=== PATIENT | female | born 1935 | race Caucasian/White ===

== ENCOUNTER → 2016-05-05 | Outpatient (CLI) | payer MEDICARE, OTHER ==
[~2016-05-05] MED LIST: ASPIRIN; BLACK COHASH; BOSWELLIA SERRAT1 GM MC; FLAX SEED OIL1000 MG; HCTZ PO; LISINOPRIL; LISINOPRIL PO; METFORMIN; METFORMIN HCL500 M1 PO; MSM; OMEGA 3-6-9 CO400 MG PO; OYSTER CALCIUM500 MG; PLAQUENIL200 MG; ZOCOR PO; [UNRECOGNIZED DRUG - MIXTURE]
--- NOTE | ~2016-05-05 | CT4 ---
[facility] A Service of [facility] RADIOLOGY TEXT RESULTS PATIENT: ATTILA SPENCER LOCATION: [facility] : 39 UNIT #: [id number] AGE: [address]: LELE THOMAS MD (INT MED) SEX: F ORDER DR: [id number] [address] [address] [id number] O MR#: [id number] Acc #: [id number] NAME: ATTILA SPENCER : 1935 SEX: F STUDY DATE/TIME: 05/05/2016 13:58 UNIT: [facility] ROOM: STUDY DESCRIPTION: CT Abd and Pelv Wo Cont Attending Physician: Lele Thomas M.D. Referring Physician: Lele Thomas M.D. Ordering Physician: Lele Thomas M.D. Primary Care Physician: Lele Thomas M.D. MEDICAL IMAGING REPORT This report is preliminary unless electronic signature is present. EXAM CT abdomen and pelvis, 05/05/2016 CLINICAL HISTORY Generalized abdominal pain and epigastric pain for 1 month. Decreased appetite and nausea. TECHNIQUE CT of the abdomen and pelvis without contrast. Coronal and sagittal reconstructions were obtained. This CT exam was performed with one or more of the following radiation dose reduction techniques: automatic exposure control, adjustment of mA and/or kV according to patient size, and iterative reconstruction. COMPARISON None available. FINDINGS ABDOMEN: There is a small 5 mm noncalcified pulmonary nodule in the left lower lobe. This is likely a benign granuloma however, it should be followed. Noncontrast evaluation of the solid abdominal organs are within normal limits. There is a densely calcified gallstone in the gallbladder. No gallbladder distension or pericholecystic inflammation. No urinary calculi. The bowel is not dilated. There is extensive colonic diverticulosis. No diverticulitis. Appendix is normal. The abdominal aorta is normal in caliber. PELVIS: Uterus and ovaries are within normal limits. The bladder is [facility] A Service of [facility] RADIOLOGY TEXT RESULTS PATIENT: ATTILA SPENCER LOCATION: [facility] : 39 UNIT #: [id number] AGE: [address]: LELE THOMAS MD (INT MED) SEX: F ORDER DR: decompressed. No enlarged pelvic or inguinal lymph nodes. IMPRESSION 1. Cholelithiasis. 2. Left-sided colonic diverticulosis. 3. 5 mm noncalcified pulmonary nodule in the left lower lobe. This is probably benign granuloma, however I would recommend precautionary followup. Consider a CT chest in 12 months. Dictated by... Maximo Campbell M.D. THIS IS AN ELECTRONICALLY VERIFIED REPORT Maximo Campbell M.D. at 05/06/2016 12:12 PM SANTA/becky TD: 05/05/2016 22:51 JOB #: [id number] MEDICAL IMAGING REPORT
== END | disposition home or self-care (01) ==
LOC: SCT 13:32
DX: R63.0 Anorexia (principal); R11.0 Nausea; K80.20 Calculus of gallbladder without cholecystitis without obstruction; K57.30 Diverticulosis of large intestine without perforation or abscess without bleeding; R91.1 Solitary pulmonary nodule
CPT/HCPCS: 74176

== ENCOUNTER → 2016-07-06 | Outpatient (CLI) | payer MEDICARE, OTHER ==
--- NOTE | ~2016-07-06 | CT4 ---
[facility] A Service of [facility] RADIOLOGY TEXT RESULTS PATIENT: ATTILA SPENCER LOCATION: [facility] : 39 UNIT #: [id number] AGE: [address]: LELE THOMAS MD (INT MED) SEX: F ORDER DR: [id number] [address] [address] [id number] O MR#: [id number] Acc #: [id number] NAME: ATTILA SPENCER : 1935 SEX: F STUDY DATE/TIME: 07/06/2016 9:31 UNIT: [facility] ROOM: STUDY DESCRIPTION: CT Abd and Pelv Wo Cont Attending Physician: Lele Thomas M.D. Referring Physician: Lele Thomas M.D. Ordering Physician: Lele Thomas M.D. Primary Care Physician: Lele Thomas M.D. MEDICAL IMAGING REPORT This report is preliminary unless electronic signature is present. EXAM CT of the abdomen and pelvis without contrast INDICATIONS Blood in the urine. This has been present since April 10, one and off. The patient also has some urinary frequency. TECHNIQUE Axial CT images were obtained from the dome of the diaphragm through the symphysis pubis. No oral or intravenous contrast material was administered. There is a 5 mm nodule within the left lower lobe, as well as a 1.0-cm nodule within the right lower lobe, both of these appear stable when compared to the May 05, 2016 exam. Liver is unremarkable. The patient has cholelithiasis. Spleen, stomach and proximal and small bowel are within normal limits, as are the adrenal glands and pancreas. No renal stones are identified. There is no hydronephrosis. No solid or cystic renal masses are identified on these unenhanced images. No distal ureteral or bladder stones are seen. No free fluid or adenopathy is seen within the abdomen. There is colonic diverticulosis without evidence of diverticulitis. Uterus is within normal limits. Urinary bladder appears normal. No free fluid or adenopathy is seen within the pelvis. Review of bony windows does not demonstrate any aggressive osseous abnormalities. IMPRESSION 1. No etiology for the patient's hematuria is identified. Kidneys appear unremarkable. No stones are seen. There is no hydronephrosis. No distal ureteral or bladder stones are identified. I do not see any solid or cystic renal masses. Bladder also appears unremarkable. [facility]. [facility] A Service of [facility] RADIOLOGY TEXT RESULTS PATIENT: ATTILA SPENCER LOCATION: [facility] : 39 UNIT #: [id number] AGE: [address]: LELE THOMAS MD (INT MED) SEX: F ORDER DR: 2. Colonic diverticulosis without evidence of diverticulitis. 3. Patient has 2 noncalcified pulmonary nodules seen at the lung bases. These are unchanged when compared to the prior examination. Continuing follow up is recommended however with next followup suggested in 6 months. 3. Cholelithiasis. 4. Please see the body of the report for any other additional incidental findings. 1. 1. Dictated by... Laney Garcia M.D. THIS IS AN ELECTRONICALLY VERIFIED REPORT Laney Garcia M.D. at 07/07/2016 4:45 PM AFF/to TD: 07/06/2016 21:13 JOB #: [id number] MEDICAL IMAGING REPORT Page 1 of 1
== END | disposition home or self-care (01) ==
LOC: SCT 09:32
DX: R31.29 Other microscopic hematuria (principal); R35.0 Frequency of micturition; N39.0 Urinary tract infection, site not specified; K80.20 Calculus of gallbladder without cholecystitis without obstruction; K57.30 Diverticulosis of large intestine without perforation or abscess without bleeding; R91.8 Other nonspecific abnormal finding of lung field
CPT/HCPCS: 74176

== ENCOUNTER → 2016-11-10 | Outpatient (CLI) | payer MEDICARE, OTHER ==
--- NOTE | ~2016-11-10 | US6 ---
[facility] A Service of [facility] RADIOLOGY TEXT RESULTS PATIENT: ATTILA SPENCER LOCATION: [facility] : 39 UNIT #: [id number] AGE: [address]: LELE THOMAS MD (INT MED) SEX: F ORDER DR: [id number] [address] [address] [id number] O MR#: [id number] Acc #: [id number] NAME: ATTILA SPENCER : 1935 SEX: F STUDY DATE/TIME: 11/10/2016 8:14 UNIT: [facility] ROOM: STUDY DESCRIPTION: US Abdominal Limited Attending Physician: Lele Thomas M.D. Referring Physician: Lele Thomas M.D. Ordering Physician: Lele Thomas M.D. Primary Care Physician: Lele Thomas M.D. MEDICAL IMAGING REPORT This report is preliminary unless electronic signature is present. EXAM Right upper quadrant abdominal ultrasound INDICATIONS Intermittent nausea since March 2016. PROCEDURE Landon-scale and Doppler imaging right upper quadrant of the abdomen COMPARISON CT from 07/06/2016 FINDINGS Visualized portions of the pancreas are unremarkable. The liver measures 15.8 cm. No liver mass is seen on submitted images. There is a 2.0 cm stone in the gallbladder as shown on the previous CT. No appreciable gallbladder wall thickening or pericholecystic fluid. There is a second smaller stone that measures approximately 11 mm. Common duct measures 3 mm. Right kidney measures 10.9 cm. IMPRESSION 1. Cholelithiasis as shown on the previous CT. No sonographic evidence for acute cholecystitis. 2. Otherwise negative right upper quadrant ultrasound Dictated by... Humza Coleman M.D. THIS IS AN ELECTRONICALLY VERIFIED REPORT Humza Coleman M.D. at 11/11/2016 8:05 AM EED/lavell [facility] A Service of [facility] RADIOLOGY TEXT RESULTS PATIENT: ATTILA SPENCER LOCATION: [facility] #: [id number] : 39 UNIT #: [id number] AGE: [address]: LELE THOMAS MD (INT MED) SEX: F ORDER DR: TD: 11/10/2016 14:43 JOB #: [id number] MEDICAL IMAGING REPORT Page 1 of 1
== END | disposition home or self-care (01) ==
LOC: SGUS 07:56
DX: K80.20 Calculus of gallbladder without cholecystitis without obstruction (principal)
CPT/HCPCS: 76705